=== PATIENT | female | born 1970 | race Caucasian/White ===

== ENCOUNTER 2021-02-15 08:14 | Day surgery (SDC) | payer BC ==
[2021-02-15] MEDS ORDERED: Lactated Ringers 1,000 ML IV SCH (08:15)
[2021-02-15] MEDS ORDERED: Propofol 200 MG/20 ML SDV IV ONE (08:15)
[2021-02-15] MEDS ORDERED: Sodium Chloride 0.9% 10 ML Syringe FLUSH PRN (08:15)
--- NOTE | 2021-02-15 09:55 | PCM.HP.2 ---
H&P History of Present Illness - General Date of Service: 02/15/21 Admit Problem/Dx: Admission Diagnosis/Problem Admission Diagnosis/Problem Colonoscopy Source of Information: Patient, Old Records History Limitations: Reports: No Limitations - History of Present Illness Initial Comments - Free Text/Narative: Here for colonoscopy for FH Colon Ca in mother, last one 7 yrs ago - Related Data Allergies/Adverse Reactions: Allergies Allergy/AdvReac Type Severity Reaction Status Date / Time celecoxib [From Celebrex] Allergy Itching Verified 02/15/21 08:40 hydrochlorothiazide Allergy Rash Verified 02/15/21 08:40 Sulfa (Sulfonamide Allergy Rash Verified 02/15/21 08:40 Antibiotics) Home Medications: Home Meds Acetaminophen [Tylenol Extra Strength] 500 - 1,000 mg PO Q4H PRN 02/14/21 [History] Acyclovir [Zovirax] 400 mg PO BID 02/14/21 [History] DULoxetine [Cymbalta] 60 mg PO DAILY 02/14/21 [History] Ferrous Sulfate [Ferosul] 325 mg PO Q48H 02/14/21 [History] Ibuprofen 800 mg PO TID PRN 02/14/21 [History] Losartan [Cozaar] 50 mg PO DAILY 02/14/21 [History] Naproxen Sodium [Aleve] 440 mg PO TID 02/14/21 [History] Phentermine HCl 37.5 mg PO DAILY 02/14/21 [History] Tofacitinib Citrate [Xeljanz Xr] 11 mg PO DAILY 02/14/21 [History] methylPREDNISolone [Medrol Dose Pack] 4 mg PO DAILY 02/14/21 [History] predniSONE 1 mg PO DAILY 02/14/21 [History] Past Medical History HEENT History: Reports: Impaired Vision Cardiovascular History: Reports: Other (See Below) Other Cardiovascular History: CONGENITAL PULMONARY VALVE STENOSIS Respiratory History: Reports: None Gastrointestinal History: Reports: Cholelithiasis Genitourinary History: Reports: None 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 Musculoskeletal History: Reports: Other (See Below) Other Musculoskeletal History: PLANTAR FASCITIS Psychiatric History: Reports: Depression Endocrine/Metabolic History: Reports: None Hematologic History: Reports: None Immunologic History: Reports: None Oncologic (Cancer) History: Reports: None Dermatologic History: Reports: None - Past Surgical History Head Surgeries/Procedures: Reports: None HEENT Surgical History: Reports: None Cardiovascular Surgical History: Reports: None Respiratory Surgical History: Reports: None GI Surgical History: Reports: None Endocrine Surgical History: Reports: None Neurological Surgical History: Reports: Discectomy, Lumbar Spine, Other (See Below) Other Neurological Surgeries/Procedures: LUMBAR DISCECTOMY 12/29/14. LUMBAR MICRODISCECTOMY 11/27/14. LUMBAR DISC HERNIATION 12/29/15 Musculoskeletal Surgical History: Reports: Knee Replacement, Other (See Below) Other Musculoskeletal Surgeries/Procedures:: BILATERAL KNEE REPLACEMENT Oncologic Surgical History: Reports: None Dermatological Surgical History: Reports: None H&P Review of Systems - Review of Systems: Review Of Systems: Comprehensive ROS is negative, except as noted in HPI. Exam - Exam Exam: See Below - Vital Signs Vital Signs: Last Vital Signs Temp 96.4 F L 02/15/21 08:15 Pulse 94 02/15/21 08:15 Resp 18 02/15/21 08:15 BP 152/90 H 02/15/21 08:15 Pulse Ox 96 02/15/21 08:15 - Exam General: Alert, Oriented Lungs: Clear to Auscultation, Normal Respiratory Effort Cardiovascular: Regular Rate, Regular Rhythm GI/Abdominal Exam: Soft, Non-Tender - Patient Data Lab Results Last 24 hrs: Laboratory Results - last 24 hr 02/15/21 Range/Units 08:30 Urine HCG, Qual Negative (NEGATIVE) Sepsis Event Note - Focused Exam Vital Signs: Vital Signs Temp Pulse Resp BP Pulse Ox 02/15/21 08:15 96.4 F L 94 18 152/90 H 96 Problem List Initiated/Reviewed/Updated: Yes Orders Last 24hrs: Active Orders 24 hr Category Date Time Status Patient Status [ADT] Routine ADT 02/15/21 08:15 Ordered Patient to Empty Bladder [RC] ASDIRECTED Care 02/15/21 08:15 Active Verify Patient Consent Obtain [RC] ASDIRECTED Care 02/15/21 08:15 Active Nothing Per Oral Diet [DIET] Diet 02/15/21 Breakfast Ordered Lactated Ringers [Ringers, Lactated] 1,000 ml Med 02/15/21 08:15 Active IV ASDIRECTED Sodium Chloride 0.9% [Saline Flush] Med 02/15/21 08:15 Active 10 ml FLUSH ASDIRECTED PRN Peripheral IV Insertion Adult [OM.PC] Routine Oth 02/15/21 08:15 Ordered Resuscitation Status Routine Resus Stat 02/14/21 13:55 Ordered Medication Orders Lactated Ringer's (Ringers, Lactated) 1,000 mls @ 125 mls/hr IV ASDIRECTED DANA Last Admin: 02/15/21 08:50 Dose: 125 mls/hr Documented by: DIPAK Sodium Chloride (Sodium Chloride 0.9% 10 Ml Syringe) 10 ml FLUSH ASDIRECTED PRN PRN Reason: Keep Vein Open Assessment/Plan Comment:: A) FH Colon cancer P) Proceed with colonoscopy; risks and complications reviewed, consent obtained
--- NOTE | 2021-02-15 10:23 | PCM.OPNOTE ---
- General Post-Op/Procedure Note Date of Surgery/Procedure: 02/15/21 Operative Procedure(s): Colonoscopy Findings: Normal Pre Op Diagnosis: FH Colon Ca Post-Op Diagnosis: Same Anesthesia Technique: MAC Primary Surgeon: Earl Garza Anesthesia Provider: Judd Bernardo Complications: None Condition: Good
--- NOTE | 2021-02-15 12:16 | OR ---
DATE OF OPERATION: 02/15/2021 SURGEON: Earl Garza MD PREOPERATIVE DIAGNOSIS: Family history of colon cancer. POSTOPERATIVE DIAGNOSIS: Normal colonoscopy. PROCEDURE: Colonoscopy. ANESTHESIA: IV sedation. PROCEDURE IN DETAIL: The patient was brought to the procedure room where she was placed on her left side and IV sedation administered. Digital rectal exam was performed which was normal. The colonoscope was inserted and advanced to the level of the cecum without difficulty. Cecal position was confirmed by identifying the appendiceal lumen and ileocecal valve. Prep was good and surfaces were well-visualized. Upon withdrawing the scope, the ascending, transverse, and descending colon were normal in appearance. The sigmoid colon and rectum were normal. Retroflexion was normal. Air was removed and the scope withdrawn. The patient tolerated the procedure well and returned to recovery in stable condition. Recommend routine colon screening again in 5 years. /[id number] ALEXIS/RAÚL
== END 2021-02-15 10:55 | disposition home or self-care (01) ==
LOC: FB.SDS 08:14
PROVIDERS: ATTEND Surgery
DX: Z12.11 Encounter for screening for malignant neoplasm of colon (principal); Z80.0 Family history of malignant neoplasm of digestive organs; Z88.8 Allergy status to other drugs, medicaments and biological substances; Z88.2 Allergy status to sulfonamides; Z79.899 Other long term (current) drug therapy
CPT/HCPCS: 81025; J2704; J7120